=== PATIENT | male | born 1970 | race Two or more races ===

== ENCOUNTER 2017-03-22 15:39 | Inpatient (IN) | payer MEDICAID ==
[~2017-03-22] VITALS: Ht 185.4 cm; Wt 90.7 kg
[~2017-03-22 15:39] MED LIST: DIVA500T59 OR; FENO54TA4 PO; GEMF600T3; HALO10TA18; HYDR50CA2; INSULIN REGULAR 100 UNIT/ML; LABE100T PO; LANTUS; LEVO150T10 PO; QUET300T14; SERT-160; TRAZ150T79
[2017-03-22] MEDS ORDERED: SODIUM CHLORIDE 0.9% 1,000 ML IVB ONE (16:01)
[2017-03-22 17:00] LABS: Basophils # (auto) 0.1 uL; Basophils % (auto) 0.7 % (0.0-2.0); CONDITION Y; Eosinophils # (auto) 0.1 uL; Eosinophils % (auto) 1.3 % (0.0-7.0); Hematocrit 32.5 % (41.0-53.0); Hemoglobin 10.8 g/dL (13.5-17.5); Lymphocytes # (auto) 1.7 uL; Lymphocytes % (auto) 19.5 % (10.0-50.0); Mean Corpuscular Hemoglobin 28.8 pg (28.0-32.0); Mean Corpuscular Hgb Conc. 33.2 g/dL (32.0-36.0); Mean Corpuscular Volume 86.7 fL (80.0-100.0); Mean Platelet Volume 6.3 fL (7.4-10.4); Monocytes # (auto) 0.4 uL; Monocytes % (auto) 4.4 % (0.0-12.0); Neutrophils # (auto) 6.4 uL; Neutrophils % (auto) 74.1 % (37.0-80.0); Platelet Count (auto) 495 10^3/uL (140-450); Red Cell Distribution Width 17.1 % (11.6-16.0); White Blood Cell 8.7 10^3/uL (4.4-10.8)
[2017-03-22 17:16] LABS: INR 1.04 (0.9-1.15); Partial Thromboplastin Time 28.7 sec (22.64-33.71); Prothrombin Time 11.3 sec (9.37-12.3)
[2017-03-22 17:19] LABS: Albumin 3.3 g/dL (3.4-5.0); BUN/Creatinine Ratio 18.7; Potassium 4.6 mmol/L (3.5-5.1)
[2017-03-22 17:21] LABS: Bilirubin, Total 0.2 mg/dL (0.2-1.0); Total Protein 6.7 g/dL (6.4-8.2)
[2017-03-22] MEDS ORDERED: ACETAMINOPHEN 500 MG TAB PO PRN (17:30)
[2017-03-22] MEDS ORDERED: TEMAZEPAM 15 MG CAP PO PRN (17:30)
[2017-03-22] MEDS ORDERED: NITROGLYCERIN 0.4 MG SL TAB SL PRN (17:30)
[2017-03-22] MEDS ORDERED: ONDANSETRON HCL 4 MG/2 ML VIAL IV PRN (17:30)
[2017-03-22] MEDS ORDERED: LACTULOSE 20Gm/30ML SOLN PO PRN ×2 (17:30→19:00)
[2017-03-22] MEDS ORDERED: HYDROcodone-ACET 5/325MG TAB PO PRN (17:30)
[2017-03-22] MEDS ORDERED: MORPHINE SULFATE 4 MG/ML SYRG IV PRN ×2 (17:30)
[2017-03-22] MEDS ORDERED: DEXTROSE (50%) 50ML SYRG IV PRN ×2 (17:30→19:00)
[2017-03-22] MEDS ORDERED: LORazepam 2MG/ML-1ML VIAL IV PRN (17:30)
[2017-03-22] MEDS ORDERED: LORazepam 0.5 MG TAB PO PRN (17:30)
[2017-03-22 18:04] VITALS: BP 154/92
[2017-03-22] MEDS ORDERED: SODIUM CHLORIDE 0.9% 1,000 ML IV SCH (19:00)
[2017-03-22] MEDS ORDERED: ACCU-CHEK COMFORT CURVE STRIP VI SCH ×2 (20:00→22:00)
[2017-03-22] MEDS ORDERED: LABETALOL HCL 200 MG TAB PO SCH (22:00)
[2017-03-22] MEDS ORDERED: hydrOXYzine PAMOATE 25 MG CAP PO SCH (22:00)
[2017-03-22] MEDS ORDERED: CLINDAMYCIN 600MG IV 50 ML IV SCH (22:00)
[2017-03-22] MEDS ORDERED: HALOPERIDOL 5 MG TAB PO SCH (22:00)
[2017-03-22] MEDS ORDERED: InsuLIN REG 1unit/0.01ml Soln (100units/ml) SC SCH (22:00)
[2017-03-22] MEDS ORDERED: traZODone HCL 50 MG TAB PO SCH (22:00)
[2017-03-22] MEDS ORDERED: QUEtiapine FUMARATE 100 MG TAB PO SCH (22:00)
[2017-03-23] MEDS ORDERED: LEVOTHYROXINE SODIUM 50 MCG TAB PO SCH (07:00)
[2017-03-23] MEDS ORDERED: cefTRIAXone 1GM/50ML D5W 50 ML IV SCH (09:00)
[2017-03-23] MEDS ORDERED: ENOXAPARIN SOD 40 MG/0.4 ML SYRINGE SC SCH (10:00)
[2017-03-23] MEDS ORDERED: SERTRALINE HCL 50 MG TAB PO SCH (10:00)
== END 2017-03-22 19:13 | disposition left against medical advice (07) | DRG 420 ==
LOC: ER 15:39 → EDBD 15:39 → TELE 15:40
PROVIDERS: ADMIT Internal Medicine; ATTEND Internal Medicine
DX: E11.649 Type 2 diabetes mellitus with hypoglycemia without coma (principal); R56.9 Unspecified convulsions; E11.22 Type 2 diabetes mellitus with diabetic chronic kidney disease; I12.9 Hypertensive chronic kidney disease with stage 1 through stage 4 chronic kidney disease, or unspecified chronic kidney disease; L03.113 Cellulitis of right upper limb; N18.9 Chronic kidney disease, unspecified; E78.5 Hyperlipidemia, unspecified; D64.9 Anemia, unspecified; E03.9 Hypothyroidism, unspecified; F20.9 Schizophrenia, unspecified; Z83.3 Family history of diabetes mellitus; Z87.891 Personal history of nicotine dependence; F32.9 Major depressive disorder, single episode, unspecified; F41.9 Anxiety disorder, unspecified; Z80.9 Family history of malignant neoplasm, unspecified; Z71.89 Other specified counseling; Z53.21 Procedure and treatment not carried out due to patient leaving prior to being seen by health care provider
CPT/HCPCS: 36415; 71010; 80053; 80164; 80185; 80307; 82962; 83036; 83735; 84443; 85025; 85610; 85652; 85730; 93005; 94761; 96360

== ENCOUNTER 2017-05-26 00:21 | Emergency (ER) | payer MEDICAID ==
[~2017-05-26] VITALS: Ht 185.4 cm; Wt 88.5 kg
[2017-05-26 00:32] VITALS: BP 111/68
== END 2017-05-26 01:25 | disposition left against medical advice (07) ==
LOC: ER 00:21 → EDBD 00:21 → ER 01:25
DX: E16.2 Hypoglycemia, unspecified (principal); Z79.4 Long term (current) use of insulin; Z53.21 Procedure and treatment not carried out due to patient leaving prior to being seen by health care provider

== ENCOUNTER 2022-09-14 18:58 | Inpatient (IN) | payer MEDICAID ==
[~2022-09-14] VITALS: Ht 182.9 cm; Wt 97.9 kg
[~2022-09-14 18:58] MED LIST changes: +DIVA500T13 OR; -DIVA500T59 OR; +GEMF-19; -GEMF600T3; +INSREG3 IV; -LABE100T PO; +LABE100T4 PO; -TRAZ150T79; +TRAZ1TAB12
[2022-09-14 19:44] LABS: Basophils # (auto) 0.1 10 ^3/uL (0-0.2); Basophils % (auto) 0.6 % (0.0-2.0); Eosinophils # (auto) 0 10 ^3/uL (0-0.8); Eosinophils % (auto) 0.1 % (0.0-7.0); Hematocrit 23.8 % (41.0-53.0); Lymphocytes # (auto) 1.6 10 ^3/uL (0.4-5.4); Lymphocytes % (auto) 9.7 % (10.0-50.0); Mean Corpuscular Hemoglobin 31.8 pg (28.0-32.0); Mean Corpuscular Hgb Conc. 33.5 g/dL (32.0-36.0); Mean Corpuscular Volume 95.2 fL (80.0-100.0); Monocytes # (auto) 0.9 10 ^3/uL (0-1.3); Monocytes % (auto) 5.8 % (0.0-12.0); Neutrophils # (auto) 13.6 10 ^3/uL (1.6-8.6); Neutrophils % (auto) 83.8 % (37.0-80.0); Red Blood Cells 2.51 10^6/uL (4.5-5.90); White Blood Cell 16.2 10^3/uL (4.4-10.8)
[2022-09-14] MEDS ORDERED: ONDANSETRON HCL 4 MG/2 ML VIAL IV ONE (19:45)
[2022-09-14] MEDS ORDERED: MORPHINE SULFATE 4 MG/ML SYR/VIAL IV ONE (19:45)
[2022-09-14 20:01] LABS: Albumin 3.2 g/dL (3.4-5.0); BUN/Creatinine Ratio 10.2; Calcium 8.9 mg/dL (8.5-10.1); Potassium 5.1 mmol/L (3.5-5.1)
[2022-09-14 20:04] LABS: Bilirubin, Total 0.6 mg/dL (0.2-1.0); Total Protein 6.6 g/dL (6.4-8.2)
[2022-09-14] MEDS ORDERED: InsuLIN REG 1unit/0.01ml Soln (100units/ml) IV ONE (23:30)
[2022-09-14] MEDS ORDERED: SODIUM CHLORIDE 0.9% 1,000 ML IV ONE (23:30)
[2022-09-15] MEDS ORDERED: cefTRIAXone 1GM/50ML D5W 50 ML IV ONE (01:00)
[2022-09-15] MEDS ORDERED: INSULIN LANTUS (GLARGINE) 1 /0.01ml (100units/ml) SC ONE (01:30)
[2022-09-15] MEDS ORDERED: DEXTROSE (50%) 50ML SYRG IV PRN ×2 (01:30→21:00)
[2022-09-15] MEDS ORDERED: InsuLIN R (HUMAN) 100 UNITS in SODIUM CHL 0.9% 99 ML IV SCH ×2 (01:30→03:45)
[2022-09-15] MEDS ORDERED: InsuLIN REG 1unit/0.01ml Soln (100units/ml) ONE (01:59)
[2022-09-15] MEDS: ACCU-CHEK COMFORT CURVE STRIP VI SCH ×7 (02:11→22:04)
[2022-09-15] MEDS ORDERED: SODIUM CHLORIDE 0.9% 1,000 ML IV SCH (03:00)
[2022-09-15] MEDS ORDERED: SODIUM CHLORIDE 0.9% 1,000 ML IV ONE (03:00)
[2022-09-15] MEDS ORDERED: hydrALAZINE HCL 20 MG/ML VL IV ONE ×2 (03:30→07:00)
[2022-09-15 04:36] LABS: Urine Bacteria FEW /hpf (None Seen); Urine Blood TRACE /uL (Negative); Urine Hyaline Cast FEW /lpf (0 - 2); Urine Specific Gravity 1.014 (1.001-1.035); Urine WBC <1 /hpf (0 - 3)
[2022-09-15 06:39] LABS: Basophils # (auto) 0 10 ^3/uL (0-0.2); Basophils % (auto) 0.1 % (0.0-2.0); Eosinophils # (auto) 0 10 ^3/uL (0-0.8); Hemoglobin 7.9 g/dL (13.5-17.5); Lymphocytes # (auto) 1.1 10 ^3/uL (0.4-5.4); Monocytes # (auto) 0.9 10 ^3/uL (0-1.3); Monocytes % (auto) 5.4 % (0.0-12.0)
[2022-09-15 06:41] LABS: Hematocrit 22.9 % (41.0-53.0); Lymphocytes % (auto) 6.6 % (10.0-50.0); Mean Corpuscular Hemoglobin 32.3 pg (28.0-32.0); Mean Corpuscular Hgb Conc. 34.5 g/dL (32.0-36.0); Mean Corpuscular Volume 93.6 fL (80.0-100.0); Neutrophils # (auto) 14.6 10 ^3/uL (1.6-8.6); Neutrophils % (auto) 87.9 % (37.0-80.0); Red Blood Cells 2.45 10^6/uL (4.5-5.90); White Blood Cell 16.6 10^3/uL (4.4-10.8)
[2022-09-15 07:03] LABS: Albumin 3.2 g/dL (3.4-5.0); BUN/Creatinine Ratio 10.6; Calcium 8.6 mg/dL (8.5-10.1)
[2022-09-15 07:06] LABS: Bilirubin, Total 0.4 mg/dL (0.2-1.0); Total Protein 6.7 g/dL (6.4-8.2)
[2022-09-15] MEDS ORDERED: DOCUSATE SOD 100 MG CAP PO PRN (07:45)
[2022-09-15] MEDS ORDERED: ACETAMINOPHEN 325 MG TAB PO PRN (07:45)
[2022-09-15] MEDS ORDERED: MORPHINE SULFATE INJ 2 MG/ml SYRG IV PRN ×2 (07:45)
[2022-09-15] MEDS ORDERED: NITROGLYCERIN 0.4 MG SL TAB SL PRN (07:45)
[2022-09-15] MEDS: SODIUM CHLORIDE 0.9% 1,000 ML IV SCH ×3 (08:44→21:33)
[2022-09-15 09:27] LABS: Magnesium 2.5 mg/dL (1.6-2.6); Phosphorus 2.8 mg/dL (2.5-4.90); Potassium 3.8 mmol/L (3.5-5.1)
[2022-09-15] MEDS ORDERED: KEP500T PO (11:00)
[2022-09-15] MEDS ORDERED: SERT50TA19 PO (11:00)
[2022-09-15] MEDS: ONDANSETRON HCL 4 MG/2 ML VIAL IV PRN ×2 (12:19→18:39)
[2022-09-15] MEDS: hydrALAZINE HCL 20 MG/ML VL IV PRN (12:50)
[2022-09-15] MEDS ORDERED: SEVE800T10 PO (13:29)
[2022-09-15] MEDS ORDERED: LEVOTHYROXINE SODIUM 50 MCG TAB PO ONE (16:00)
[2022-09-15] MEDS ORDERED: DEXTROSE (50%) 50ML SYRG IV ONE (17:15)
[2022-09-15] MEDS ORDERED: NITROGLYCERIN 50MG/250ML 250 ML IV ONE (17:17)
[2022-09-15] MEDS: NITROGLYCERIN 50MG/250ML 250 ML IV SCH (17:25)
[2022-09-15] MEDS: LORazepam 2MG/ML-1ML VIAL IV PRN (18:26)
[2022-09-15] MEDS: InsuLIN REG 1unit/0.01ml Soln (100units/ml) SC SCH (22:00)
[2022-09-15] MEDS: QUEtiapine FUMARATE 100 MG TAB PO SCH (22:55)
[2022-09-16] MEDS: SODIUM CHLORIDE 0.9% 1,000 ML IV SCH ×3 (04:00→22:57)
[2022-09-16] MEDS: NITROGLYCERIN 50MG/250ML 250 ML IV SCH (05:46)
[2022-09-16 06:19] LABS: Basophils # (auto) 0 10 ^3/uL (0-0.2); Basophils % (auto) 0.4 % (0.0-2.0); Eosinophils # (auto) 0.1 10 ^3/uL (0-0.8); Eosinophils % (auto) 0.7 % (0.0-7.0); Hematocrit 19.1 % (41.0-53.0); Neutrophils # (auto) 7.2 10 ^3/uL (1.6-8.6); Neutrophils % (auto) 80.2 % (37.0-80.0)
[2022-09-16 06:22] LABS: Lymphocytes # (auto) 1.2 10 ^3/uL (0.4-5.4); Lymphocytes % (auto) 13.6 % (10.0-50.0); Mean Corpuscular Hemoglobin 31.7 pg (28.0-32.0); Mean Corpuscular Hgb Conc. 34.1 g/dL (32.0-36.0); Monocytes # (auto) 0.5 10 ^3/uL (0-1.3); Monocytes % (auto) 5.1 % (0.0-12.0); Red Blood Cells 2.06 10^6/uL (4.5-5.90); Red Cell Distribution Width 19.3 % (11.8-14.3); White Blood Cell 8.9 10^3/uL (4.4-10.8)
[2022-09-16 06:36] LABS: Hemoglobin 6.5 g/dL (13.5-17.5)
[2022-09-16 06:46] LABS: Potassium 4.2 mmol/L (3.5-5.1)
[2022-09-16 06:52] LABS: Albumin 2.8 g/dL (3.4-5.0); BUN/Creatinine Ratio 9.3; Bilirubin, Total 0.4 mg/dL (0.2-1.0); Total Protein 5.7 g/dL (6.4-8.2)
[2022-09-16] MEDS: LEVOTHYROXINE SODIUM 50 MCG TAB PO SCH (07:23)
[2022-09-16] MEDS: ACCU-CHEK COMFORT CURVE STRIP VI SCH ×4 (07:33→22:43)
[2022-09-16] MEDS: InsuLIN REG 1unit/0.01ml Soln (100units/ml) SC SCH ×4 (07:40→22:48)
[2022-09-16] MEDS: INSULIN LANTUS (GLARGINE) 1 /0.01ml (100units/ml) SC SCH (10:00)
[2022-09-16 13:40] LABS: Hemoglobin 7.3 g/dL (13.5-17.5)
[2022-09-16 13:42] LABS: Hematocrit 21.7 % (41.0-53.0)
[2022-09-16] MEDS: TAMSULOSIN HYDROCHLORIDE 0.4 MG CAP PO SCH (20:14)
[2022-09-16] MEDS: LABETALOL HCL 200 MG TAB PO SCH ×2 (20:15→22:00)
[2022-09-16] MEDS: QUEtiapine FUMARATE 100 MG TAB PO SCH (22:49)
[2022-09-17] MEDS: LORazepam 2MG/ML-1ML VIAL IV PRN (01:56)
[2022-09-17] MEDS: ACCU-CHEK COMFORT CURVE STRIP VI SCH ×4 (06:40→22:14)
[2022-09-17] MEDS: InsuLIN REG 1unit/0.01ml Soln (100units/ml) SC SCH ×4 (06:41→22:00)
[2022-09-17] MEDS: LEVOTHYROXINE SODIUM 50 MCG TAB PO SCH (06:46)
[2022-09-17] MEDS: SODIUM CHLORIDE 0.9% 1,000 ML IV SCH ×2 (08:33→18:11)
[2022-09-17] MEDS ORDERED: amLODIPine BESYLATE 5 MG TAB PO SCH (10:00)
[2022-09-17] MEDS: amLODIPine BESYLATE 5 MG TAB PO SCH (10:27)
[2022-09-17] MEDS: LABETALOL HCL 200 MG TAB PO SCH ×2 (10:27→22:14)
[2022-09-17] MEDS: INSULIN LANTUS (GLARGINE) 1 /0.01ml (100units/ml) SC SCH (10:27)
[2022-09-17] MEDS: PANTOPRAZOLE 40 MG TAB PO SCH (10:50)
[2022-09-17] MEDS: HYDROcodone-ACET 5/325MG TAB PO PRN (11:00)
[2022-09-17 11:08] LABS: Monocytes # (auto) 0.4 10 ^3/uL (0-1.3); Neutrophils # (auto) 4.2 10 ^3/uL (1.6-8.6)
[2022-09-17 11:11] LABS: Basophils # (auto) 0.1 10 ^3/uL (0-0.2); Basophils % (auto) 1.1 % (0.0-2.0); Eosinophils # (auto) 0.1 10 ^3/uL (0-0.8); Eosinophils % (auto) 2.1 % (0.0-7.0); Hematocrit 18.9 % (41.0-53.0); Lymphocytes # (auto) 1.6 10 ^3/uL (0.4-5.4); Lymphocytes % (auto) 25.9 % (10.0-50.0); Mean Corpuscular Hemoglobin 32.6 pg (28.0-32.0); Mean Corpuscular Hgb Conc. 33.3 g/dL (32.0-36.0); Mean Corpuscular Volume 97.7 fL (80.0-100.0); Monocytes % (auto) 5.6 % (0.0-12.0); Neutrophils % (auto) 65.3 % (37.0-80.0); Red Blood Cells 1.94 10^6/uL (4.5-5.90); Red Cell Distribution Width 19.5 % (11.8-14.3); White Blood Cell 6.4 10^3/uL (4.4-10.8)
[2022-09-17 11:27] LABS: Hemoglobin 6.3 g/dL (13.5-17.5)
[2022-09-17 13:23] LABS: Albumin 2.7 g/dL (3.4-5.0); Calcium 7.5 mg/dL (8.5-10.1); Magnesium 2.3 mg/dL (1.6-2.6); Potassium 4.1 mmol/L (3.5-5.1)
[2022-09-17 13:27] LABS: Bilirubin, Total 0.4 mg/dL (0.2-1.0); Total Protein 5.3 g/dL (6.4-8.2)
[2022-09-17] MEDS ORDERED: PIPERACILLIN-TAZOB 3.375GM 100 ML IV SCH (14:00)
[2022-09-17] MEDS: metroNIDAZOLE 500 MG TAB PO SCH ×2 (14:06→22:13)
[2022-09-17 14:30] VITALS: BP 137/68
[2022-09-17 14:45] VITALS: BP 130/68
[2022-09-17 16:38] VITALS: BP 153/87
[2022-09-17 17:00] VITALS: BP 146/71
[2022-09-17] MEDS: TAMSULOSIN HYDROCHLORIDE 0.4 MG CAP PO SCH (18:12)
[2022-09-17] MEDS: PIPERACILLIN-TAZOB 2.25GM 50 ML IV SCH (18:12)
[2022-09-17 22:00] VITALS: BP 155/83
[2022-09-17] MEDS: QUEtiapine FUMARATE 100 MG TAB PO SCH (22:13)
[2022-09-17 23:58] LABS: Alcohol, Urine < 3.0 mg/dL (0-10); Barbiturate Scree,Urine NEGATIVE (NEGATIVE); Sodium Urine 72 mmol/L (40-220)
[2022-09-18] LABS: Amphetamine Screen, Urine NEGATIVE (NEGATIVE); Benzodiazephine Screen, Urine NEGATIVE (NEGATIVE); Cannabinoid Screen, Urine NEGATIVE (NEGATIVE); Cocaine Screen, Urine NEGATIVE (NEGATIVE); Creatinine, Urine 55 mg/dL (30.0-125.0); Opiate Scree,Urine NEGATIVE (NEGATIVE); Phencyclidine Screen, Urine NEGATIVE (NEGATIVE)
[2022-09-18] MEDS: PIPERACILLIN-TAZOB 2.25GM 50 ML IV SCH ×3 (00:18→12:02)
[2022-09-18] MEDS: SODIUM CHLORIDE 0.9% 1,000 ML IV SCH (04:00)
[2022-09-18 05:00] VITALS: BP 153/80
[2022-09-18] MEDS: InsuLIN REG 1unit/0.01ml Soln (100units/ml) SC SCH ×4 (06:06→21:24)
[2022-09-18] MEDS: ACCU-CHEK COMFORT CURVE STRIP VI SCH ×4 (06:08→21:23)
[2022-09-18] MEDS: metroNIDAZOLE 500 MG TAB PO SCH ×3 (06:10→22:02)
[2022-09-18] MEDS: LEVOTHYROXINE SODIUM 50 MCG TAB PO SCH (06:10)
[2022-09-18 07:01] LABS: Basophils # (auto) 0.1 10 ^3/uL (0-0.2); Basophils % (auto) 0.9 % (0.0-2.0); Hemoglobin 7.6 g/dL (13.5-17.5); Nucleated Red Blood Cells % 0.1 %
[2022-09-18 07:04] LABS: Eosinophils # (auto) 0.2 10 ^3/uL (0-0.8); Eosinophils % (auto) 3.4 % (0.0-7.0); Lymphocytes # (auto) 1.7 10 ^3/uL (0.4-5.4); Lymphocytes % (auto) 26.3 % (10.0-50.0); Mean Corpuscular Hemoglobin 32.9 pg (28.0-32.0); Mean Corpuscular Hgb Conc. 34.6 g/dL (32.0-36.0); Monocytes # (auto) 0.4 10 ^3/uL (0-1.3); Monocytes % (auto) 5.7 % (0.0-12.0); Neutrophils # (auto) 4.2 10 ^3/uL (1.6-8.6); Neutrophils % (auto) 63.7 % (37.0-80.0); Red Blood Cells 2.32 10^6/uL (4.5-5.90); Red Cell Distribution Width 19.8 % (11.8-14.3); White Blood Cell 6.6 10^3/uL (4.4-10.8)
[2022-09-18 07:16] LABS: BUN/Creatinine Ratio 9.7; Calcium 7.6 mg/dL (8.5-10.1); Potassium 4.4 mmol/L (3.5-5.1)
[2022-09-18 09:00] VITALS: BP 134/67
[2022-09-18] MEDS: HYDROcodone-ACET 5/325MG TAB PO PRN ×2 (10:14→21:18)
[2022-09-18] MEDS: INSULIN LANTUS (GLARGINE) 1 /0.01ml (100units/ml) SC SCH (10:50)
[2022-09-18] MEDS: LACTULOSE 20Gm/30ML SOLN PO SCH ×2 (10:50→22:00)
[2022-09-18] MEDS: PANTOPRAZOLE 40 MG TAB PO SCH (10:51)
[2022-09-18] MEDS: amLODIPine BESYLATE 5 MG TAB PO SCH (10:55)
[2022-09-18] MEDS: LABETALOL HCL 200 MG TAB PO SCH ×2 (10:55→22:02)
[2022-09-18] MEDS ORDERED: SODIUM BICARBONATE 50ML VIAL 50 ML in SOD CHL 0.45% 1,000 ML IV SCH (11:00)
[2022-09-18] MEDS: SEVELAMER 800 MG TAB PO SCH ×2 (12:02→18:21)
[2022-09-18 13:00] VITALS: BP 148/78
[2022-09-18] MEDS: PIPERACILLIN-TAZOB 3.375GM 100 ML IV SCH ×2 (13:38→22:03)
[2022-09-18] MEDS ORDERED: SODIUM BICARBONATE 650 MG TAB PO SCH (14:00)
[2022-09-18 17:00] VITALS: BP 164/91
[2022-09-18] MEDS: TAMSULOSIN HYDROCHLORIDE 0.4 MG CAP PO SCH (18:21)
[2022-09-18 22:00] VITALS: BP 169/91
[2022-09-18] MEDS: QUEtiapine FUMARATE 100 MG TAB PO SCH (22:00)
[2022-09-18] MEDS ORDERED: traZODone HCL 50 MG TAB PO SCH (23:31)
[2022-09-18] MEDS: hydrALAZINE HCL 20 MG/ML VL IV PRN (23:53)
[2022-09-19] MEDS: LORazepam 2MG/ML-1ML VIAL IV PRN (01:53)
[2022-09-19 02:05] VITALS: BP 152/82
[2022-09-19] MEDS: PIPERACILLIN-TAZOB 3.375GM 100 ML IV SCH ×2 (05:18→14:40)
[2022-09-19] MEDS: metroNIDAZOLE 500 MG TAB PO SCH ×2 (05:18→14:40)
[2022-09-19 05:27] VITALS: BP 153/81
[2022-09-19] MEDS: ACCU-CHEK COMFORT CURVE STRIP VI SCH ×2 (06:05→12:36)
[2022-09-19] MEDS: LEVOTHYROXINE SODIUM 50 MCG TAB PO SCH (06:06)
[2022-09-19] MEDS: InsuLIN REG 1unit/0.01ml Soln (100units/ml) SC SCH ×2 (06:06→12:37)
[2022-09-19 08:00] VITALS: BP 148/79
[2022-09-19 09:24] VITALS: BP 148/79
[2022-09-19] MEDS ORDERED: DOXY-346 PO (09:33)
[2022-09-19] MEDS: SEVELAMER 800 MG TAB PO SCH ×2 (10:35→12:37)
[2022-09-19] MEDS: LACTULOSE 20Gm/30ML SOLN PO SCH (10:35)
[2022-09-19] MEDS: LABETALOL HCL 200 MG TAB PO SCH (10:36)
[2022-09-19] MEDS: amLODIPine BESYLATE 5 MG TAB PO SCH (10:37)
[2022-09-19] MEDS: PANTOPRAZOLE 40 MG TAB PO SCH (10:37)
[2022-09-19] MEDS: INSULIN LANTUS (GLARGINE) 1 /0.01ml (100units/ml) SC SCH (10:38)
== END 2022-09-19 16:15 | disposition left against medical advice (07) | DRG 199 ==
LOC: EDUNIT# 18:58 → ER 18:58 → EDBD 18:58 → TELE 09-15 07:43 → TELE-EAST 09-17 17:34 → EAST 09-18 23:23
PROVIDERS: ADMIT Nurse Practitioner; ATTEND Nurse Practitioner
PROC: 30233N1 Transfusion of Nonautologous Red Blood Cells into Peripheral Vein, Percutaneous Approach (ICD-10-PCS; principal; 2022-09-17)
DX: I16.1 Hypertensive emergency (principal); E10.10 Type 1 diabetes mellitus with ketoacidosis without coma; N17.9 Acute kidney failure, unspecified; F02.83 Dementia in other diseases classified elsewhere, unspecified severity, with mood disturbance; K61.1 Rectal abscess; E83.39 Other disorders of phosphorus metabolism; N18.4 Chronic kidney disease, stage 4 (severe); D64.9 Anemia, unspecified; E03.9 Hypothyroidism, unspecified; E10.65 Type 1 diabetes mellitus with hyperglycemia; Z20.822 Contact with and (suspected) exposure to COVID-19; I12.9 Hypertensive chronic kidney disease with stage 1 through stage 4 chronic kidney disease, or unspecified chronic kidney disease; N40.0 Benign prostatic hyperplasia without lower urinary tract symptoms; F31.9 Bipolar disorder, unspecified; F41.9 Anxiety disorder, unspecified; Z53.29 Procedure and treatment not carried out because of patient's decision for other reasons; E78.00 Pure hypercholesterolemia, unspecified; E86.0 Dehydration; K57.30 Diverticulosis of large intestine without perforation or abscess without bleeding; F02.84 Dementia in other diseases classified elsewhere, unspecified severity, with anxiety; F20.9 Schizophrenia, unspecified; G40.909 Epilepsy, unspecified, not intractable, without status epilepticus; K59.00 Constipation, unspecified; N40.1 Benign prostatic hyperplasia with lower urinary tract symptoms; Z79.899 Other long term (current) drug therapy; Z79.4 Long term (current) use of insulin; Z82.0 Family history of epilepsy and other diseases of the nervous system; Z83.3 Family history of diabetes mellitus; Z91.199 Patient's noncompliance with other medical treatment and regimen due to unspecified reason
CPT/HCPCS: 36415; 36600; 71045; 71250; 74176; 76705; 76775; 80048; 80053; 80307; 81001; 82010; 82270; 82570; 82805; 82962; 83036; 83735; 83880; 83930; 84100; 84132; 84300; 84443; 84484; 85014; 85018; 85025; 86850; 86900; 86901; 86920; 87426; 93005; 93306; 95819; 96361; 96365; 96366; 96367; 96372; 96375; 96376; 99291; G0378; J0696; J1815; J2405; J2543